=== PATIENT | male | born 1995 ===

== ENCOUNTER 2021-09-22 17:22 | Emergency (ER) | payer OTHER ==
[~2021-09-22] VITALS: Ht 165.1 cm; Wt 75.7 kg
[~2021-09-22 17:22] MED LIST: NASONEX17 GM NS; ZYRTEC10 MG PO
== END 2021-09-22 20:52 | disposition home or self-care (01) ==
LOC: ER 17:22
DX: S62.616A Displaced fracture of proximal phalanx of right little finger, initial encounter for closed fracture (principal); W18.30XA Fall on same level, unspecified, initial encounter; Y93.9 Activity, unspecified; Y92.9 Unspecified place or not applicable; Y99.9 Unspecified external cause status